=== PATIENT | female | born 1965 | race Caucasian/White ===

== ENCOUNTER → 2017-01-15 | Outpatient (CLI) | payer MEDICAID | LOC: FIMAGING 13:54 | PROVIDERS: ATTEND Registered Nurse | DX: Z12.31 Encounter for screening mammogram for malignant neoplasm of breast (principal); R10.2 Pelvic and perineal pain | CPT/HCPCS: G0202 ==

== ENCOUNTER 2017-05-26 12:45 | Emergency (ER) | payer MEDICAID ==
[2017-05-26 13:04] VITALS: RESP 16
[2017-05-26] MEDS ORDERED: IBUPROFEN 600 MG TAB PO ONE (13:38)
--- NOTE | 2017-05-26 14:05 | EDPHY ---
H & P Time Seen by Provider: 05/26/17 12:55 HPI/ROS: CHIEF COMPLAINT: Cough History by patient HISTORY OF PRESENT ILLNESS: 51-year-old woman with no significant past medical history presents complaining of persistent cough, subjective fever and chills, malaise and aches. The cough has been nonproductive. She also has a sore throat but no real runny nose. She has some her primary care physician at [facility] prescribed an albuterol inhaler but this has not helped her. Symptoms been going on for least 2 weeks but gotten worse the past couple days. She has some nausea but no vomiting or diarrhea. She denies any rash. There is no known ill contacts. She does not smoke. She works as a site manager. REVIEW OF SYSTEMS: As in HPI, and all other systems reviewed and are negative Smoking Status: Never smoked Physical Exam: General Appearance: Alert and no distress. Warm and uncomfortable appearing Head: normocephalic, atraumatic, no sinus tenderness Eyes: Pupils equal and round no injection. Ears: TM clear bilat OP: mucus membranes moist, no tonsillar enlargement, no exudates Neck: no meningismus, no cervical nodes, no submandibular nodes Respiratory: Chest is nontender, lungs are clear to auscultation. Cardiac: regular rate and rhythm. Gastrointestinal: Abdomen is soft and nontender, no masses, bowel sounds normal. Musculoskeletal: Neck is supple and nontender. Extremities have full range of motion and are nontender. Skin: No rashes or lesions. Constitutional: Initial Vital Signs Temperature (C) 36.4 C 05/26/17 12:50 Heart Rate 98 05/26/17 12:50 Respiratory Rate 16 05/26/17 12:50 Blood Pressure 125/91 H 05/26/17 12:50 O2 Sat (%) 95 05/26/17 12:50 O2 Delivery Mode Room Air Allergies/Adverse Reactions: No Known Allergies Allergy (Verified 05/26/17 13:04) Home Medications: Medication Instructions Recorded Albuterol [Proventil Neb] 05/26/17 Hydrochlorothiazide 05/26/17 Oseltamivir Phosphate [Tamiflu 75 75 mg PO BID #10 cap 05/26/17 mg (*)] MDM/Departure - MDM Medications Given: Discontinued Medications Ibuprofen (Motrin) 600 mg PO EDNOW ONE Stop: 05/26/17 13:39 Last Admin: 05/26/17 13:42 Dose: 600 mg ED Course/Re-evaluation: 51-year-old woman presents with ongoing cough subjective fever and well as low- grade temperature in the ED. Influenza B swab was positive. There is no evidence of hypoxia, respiratory compromise or significant systemic toxicity. Patient was started on Tamiflu. I am also recommended she try using a spacer with the albuterol for her cough. We discussed home care and return precautions. Patient is discharged home in stable condition. - Depart Disposition: Home, Routine, Self-Care Clinical Impression: Influenza B Condition: Fair Instructions: Influenza (ED) Additional Instructions: You were seen by Dr. Lachelle Mcintyre. Use a humidifier in the room where you sleep. Try hot drinks with honey for cough and sore throat. Take ibuprofen 400-600mg 4 times daily and Tylenol 500- 1000mg every 6 hours as needed for fever and/or pain. Use your inhaler with a spacer for cough. Take Tamiflu as prescribed. Return for any worsening or new concerns. Prescriptions: Oseltamivir Phosphate [Tamiflu 75 mg (*)] 75 mg PO BID #10 cap Referrals: [facility] [Other] - As per Instructions Print Language: German
[2017-05-26 14:42] VITALS: BP 133/81; PULSE 96; TEMP 98.2; O2SAT 96
== END 2017-05-26 14:42 | disposition home or self-care (01) ==
LOC: CED 12:45
DX: J10.1 Influenza due to other identified influenza virus with other respiratory manifestations (principal)
CPT/HCPCS: 87400-PO

== ENCOUNTER 2017-10-15 15:08 | Emergency (ER) | payer MEDICAID ==
--- NOTE | 2017-10-15 15:21 | CPEKG ---
Heart Rate: 87 RR Interval: 690 P-R Interval: 164 QRSD Interval: 78 QT Interval: 364 QTC Interval: 438 P [place]: 46 QRS [place]: 7 T Wave [place]: -77 EKG Severity - ABNORMAL ECG - EKG Impression: SINUS RHYTHM EKG Impression: NONSPECIFIC T ABNORMALITIES, LATERAL LEADS Electronically Signed By: Bryan Lyons 16-Oct-2017 11:59:33
[2017-10-15] MEDS ORDERED: ASPIRIN 81 MG CHEWABLE TAB PO ONE (15:29)
[2017-10-15 15:37] LABS: PLATELET COUNT 271 10^3/uL (150-400)
[2017-10-15] MEDS ORDERED: NS 1,000 ML IV ONE (15:45)
[2017-10-15] MEDS ORDERED: KETOROLAC 30 MG/1 ML SDV IVP ONE (15:48)
[2017-10-15] MEDS ORDERED: METOCLOPRAMIDE 10 MG/2 ML VIAL IVP ONE (15:48)
[2017-10-15] MEDS ORDERED: MECLIZINE HCL 25 MG TAB PO ONE (16:25)
--- NOTE | 2017-10-15 16:31 | EDPHY ---
H & P Stated Complaint: Pt. states constant CP since Saturday with dizziness,nausea Time Seen by Provider: 10/15/17 15:18 HPI/ROS: This patient presents with multiple somatic complaints. Alva andrea from translation services translated as patient is Botswanan-speaking only. Patient was driven here by her daughter who also provides history. The patient describes a 5 day history of dizziness that she describes as spinning sensation more than lightheadedness without clear exacerbating or alleviating factors. She states the intensity is [id number] and she notes no exacerbating or alleviating factors. She denies any worsening with head movement. She also reports headache described as sharp in nature of 3 days duration in the occipital region-midline 8/10 in intensity and constant. No exacerbating factors. She has not had this headache before. She tried Naporoxen 500 mg last night without relief. No other alleviating factors. Finally, she reports neck pain also 3 days duration that starts in the submandibular region extends to the left trapezius more than right trapezius. She also feels that there is more swelling to her double chin than usual. She also complains of breast pain to lateral breast bilaterally. This was initially interpreted by our nurse as chest pain but the patient specifies that is lateral breast pain that feels burning in nature. ROS: Constitutional: No fevers or chills. Neuro: She reports no numbness tingling or focal weakness. She describes slight photophobia. She also feels that she is slightly diminished vision compared to baseline. No other visual changes. No confusion. HEENT: No recent head trauma. She denies any tooth pain. She does report some jaw pain left more than right. Pulmonary: No dyspnea. No coughing. Cardiovascular: No heart palpitations. No lightheadedness. GI: Some nausea but no vomiting. No abdominal pain. : No dysuria, frequency urgency. Endocrine: No complaints new line integumentary: No complaints Complete review of symptoms is otherwise negative. Source: Patient Exam Limitations: No limitations - Personal History LMP (Females 10-55): Post Menopausal Current Tetanus Diphtheria and Acellular Pertussis (TDAP): Unsure Tetanus Vaccine Date: within 10 years - Medical/Surgical History Hx Asthma: No Hx Chronic Respiratory Disease: No Hx Diabetes: No Hx Cardiac Disease: No Hx Renal Disease: No Hx Cirrhosis: No Hx Alcoholism: No Hx HIV/AIDS: No Hx Splenectomy or Spleen Trauma: No Other PMH: Med hx-HTN,. [id number] - Family History Significant Family History: No pertinent family hx - Social History Smoking Status: Never smoked Alcohol Use: None Drug Use: None Additional Social History: She is accompanied by her daughter with whom she lives. Daughter does not have headache. Daughter drove here will drive her home - Physical Exam Exam: Physical exam: Vital signs are normal General: Patient is in no acute distress. HEENT: Is no external evidence of trauma on exam. Eyes: Pupils are equal and reactive to light. Extraocular motions are intact. Optic fundi: Clear with no papilledema or hemorrhage. Nose atraumatic. Ears: Clear bilaterally with no hemotympanum. Oropharynx: No dental trauma or malocclusion. No intraoral lacerations. Eyes: Pupils are equal and reactive to light. Extraocular motions are intact. Optic fundi: Clear with no papilledema or hemorrhage. Lungs: Clear to auscultation bilaterally Breast exam performed with female nurse in the room-no erythema or warmth to touch. Minimal lateral tenderness without nodularity. Normal appearing nipples without discharge. No other chest wall tenderness. Neck: Supple no meningismus. Cardiac: Regular rate and rhythm no murmur gallop or rub. Abdomen: Soft nontender no organomegaly Neuro: GCS of 15. Cranial nerves II through XII intact. Cerebellar exam is normal as judged by symmetric rapid hand movements bilaterally. No pronator drift. No sensory or motor deficits are appreciated. No eye nystagmus is appreciated. Initial differential diagnosis: Migraine, tension headache, BODY HANGER lesion, intracranial bleed, myocardial ischemic disease, pulmonary embolism, musculoskeletal chest pain, breast pain from skin irritation or brought irritation, doubt mastitis given lack of supportive exam findings. Doubt myocardial ischemic disease given very atypical symptoms. and neck pain. Constitutional: Initial Vital Signs Temperature (C) 36.6 C 10/15/17 15:22 Heart Rate 81 10/15/17 15:22 Respiratory Rate 18 10/15/17 15:22 Blood Pressure 157/84 H 10/15/17 15:22 O2 Sat (%) 95 10/15/17 15:22 O2 Delivery Mode Room Air Allergies/Adverse Reactions: No Known Allergies Allergy (Verified 10/15/17 15:20) Home Medications: Medication Instructions Recorded Hydrochlorothiazide 05/26/17 Meclizine HCl [Meclizine HCl 25 mg 25 mg PO TID PRN #20 tab 10/15/17 (RX,OTC)] Potassium Cl [Klor-Con 20 meq (*)] 20 meq PO DAILY #15 tab 10/15/17 Medical Decision Making - Diagnostics EKG Interpretation: 12 lead EKG: Performed shortly after arrival at 3:19 p.m. Indication chest pain Sinus rhythm at 87 Intervals: Normal throughout ST segments: Normal throughout except for slight ST depression in V5 with no prior for comparison Overall assessment normal sinus rhythm with nonspecific lateral T-wave abnormality ED Course/Re-evaluation: IV, monitor, patient is initially treated with aspirin Meclizine with reduction in her dizziness Reglan and Benadryl with reduction in her headache to minimal symptoms. Toradol IV in addition Tylenol p.o. In addition with further duction her discomfort. Potassium chloride p.o. Studies: CBC normal, metabolic panel normal exception of hypokalemia to 3.0, D- dimer normal, troponin normal Discussion: Patient with headache that I think is likely a tension headache given associated posterior neck tenderness. No evidence of meningismus on exam. Doubt BODY HANGER process. No evidence of central vertigo based on exam. Also appreciate no nystagmus or worsening of her dizziness with head movement that would be consistent with benign positional vertigo. While she has breast pain, find no abnormalities on her exam. All her symptoms improved with treatment. After workup, and not think she has acute coronary syndrome. Given lack of risk factors are normal D-dimer, very low risk of pulmonary embolism. Did not pursue chest imaging given that her symptoms are really breast pain rather than true chest pain. I suspect that her low potassium is attributable to her thiazide diuretic. I gave her a dose of potassium here with plan for to continue potassium chloride as an outpatient and follow up with primary care physician within the next week for recheck and recheck potassium level. Patient understands the need to return should she develop any worsening of symptoms despite plan of meclizine for dizziness if needed, Tylenol ibuprofen for any recurrent headaches. - Data Points Laboratory Results: Laboratory Results 10/15/17 15:26 10/15/17 15:26 10/15/17 10/15/17 10/15/17 15:26 15:26 15:26 WBC 9.09 10^3/uL 10^3/uL (3.80-9.50) RBC 4.64 10^6/uL 10^6/uL (4.18-5.33) Hgb 14.7 g/dL g/dL (12.6-16.3) Hct 41.1 % % (38.0-47.0) MCV 88.6 fL fL (81.5-99.8) MCH 31.7 pg pg (27.9-34.1) MCHC 35.8 g/dL g/dL (32.4-36.7) RDW 12.2 % % (11.5-15.2) Plt Count 271 10^3/uL 10^3/uL (150-400) MPV 9.4 fL fL (8.7-11.7) Neut % (Auto) 55.5 % % (39.3-74.2) Lymph % (Auto) 36.5 % % (15.0-45.0) [place]usk % (Auto) 6.7 % % (4.5-13.0) Eos % (Auto) 0.7 % % (0.6-7.6) Baso % (Auto) 0.3 % % (0.3-1.7) Nucleat RBC Rel Count 0.0 % % (0.0-0.2) Absolute Neuts (auto) 5.04 10^3/uL 10^3/uL (1.70-6.50) Absolute Lymphs (auto) 3.32 10^3/uL H 10^3/uL (1.00-3.00) Absolute Monos (auto) 0.61 10^3/uL 10^3/uL (0.30-0.80) Absolute Eos (auto) 0.06 10^3/uL 10^3/uL (0.03-0.40) Absolute Basos (auto) 0.03 10^3/uL 10^3/uL (0.02-0.10) Absolute Nucleated RBC 0.00 10^3/uL 10^3/uL (0-0.01) Immature Gran % 0.3 % % (0.0-1.1) Immature Gran # 0.03 10^3/uL 10^3/uL (0.00-0.10) D-Dimer 0.27 ug/mLFEU ug/mLFEU (0.00-0.50) Sodium 144 mEq/L mEq/L (135-145) Potassium 3.0 mEq/L L mEq/L (3.3-5.0) Chloride 103 mEq/L mEq/L (97-110) Carbon Dioxide 29 mEq/l mEq/l (22-31) Anion Gap 12 mEq/L mEq/L (8-16) BUN 7 mg/dL mg/dL (7-23) Creatinine 0.8 mg/dL mg/dL (0.6-1.0) Estimated GFR > 60 Glucose 111 mg/dL H mg/dL (70-100) Calcium 9.3 mg/dL mg/dL (8.5-10.4) Troponin I < 0.012 ng/mL ng/mL (0.000-0.034) Medications Given: Discontinued Medications Acetaminophen (Tylenol) 1,000 mg PO EDNOW ONE Stop: 10/15/17 17:09 Last Admin: 10/15/17 17:14 Dose: 1,000 mg Aspirin (Aspirin) 324 mg PO EDNOW ONE Stop: 10/15/17 15:30 Last Admin: 10/15/17 15:38 Dose: 324 mg Diphenhydramine HCl (Benadryl Injection) 25 mg IVP EDNOW ONE Stop: 10/15/17 15:49 Last Admin: 10/15/17 16:02 Dose: 25 mg Sodium Chloride (Ns) 1,000 mls @ 0 mls/hr IV ONCE ONE PRN Reason: Wide Open Stop: 10/15/17 15:46 Last Admin: 10/15/17 15:45 Dose: 1,000 mls Ketorolac Tromethamine (Toradol) 30 mg IVP EDNOW ONE Stop: 10/15/17 15:49 Last Admin: 10/15/17 16:06 Dose: 30 mg Meclizine HCl (Meclizine Hcl) 25 mg PO EDNOW ONE Stop: 10/15/17 16:26 Last Admin: 10/15/17 16:37 Dose: 25 mg Metoclopramide HCl (Reglan Injection) 10 mg IVP EDNOW ONE Stop: 10/15/17 15:49 Last Admin: 10/15/17 16:13 Dose: 10 mg Potassium Chloride (Klor Packets) 40 meq PO EDNOW ONE Stop: 10/15/17 17:06 Last Admin: 10/15/17 17:15 Dose: 40 meq Departure - Departure Disposition: Home, Routine, Self-Care Clinical Impression: Dizziness, Breast pain, Hypokalemia Acute headache Qualifiers: Headache type: tension-type Intractability: not intractable Qualified Code(s): G44.209 - Tension-type headache, unspecified, not intractable Condition: Good Instructions: Potassium Chloride (By mouth), Meclizine (By mouth), Hypokalemia (ED), Acute Headache (ED), Dizziness (ED) Additional Instructions: Diagnoses: 1. Acute headache 2. Dizziness 3. Breast pain 4. Hypokalemia Plan: Tylenol and ibuprofen for breast pain and headache Meclizine if needed for dizziness. Potassium daily as prescribed for low potassium related to your blood pressure medicine. Follow up with [facility] in 1 week for recheck and to recheck your potassium level. Return emergency department for any significant worsening despite the treatment plan Diagnostico: 1. Dolor de cornelius dolly 2. Mareo 3. Dolor en los pechos 4. Hipokalemiea Plan: Tylenol y Ibuprofen para el dolor de los pechos y de la cornelius - Meclizine si lo necesita para los mareos - Potasio a diario a lisbet le le almonte recetado para el bajo nivel de potasio relacionado a reyna medicina para la presion de la marie. - Zachary kd alcon de seguimiento con la [facility] en 1 semana para re- evaluar reyna nivel de potasio - Regrese a la deanne de emergencia si empeora reyna condicion a pesar del tratamiento. Referrals: [facility] [Other] - As per Instructions Prescriptions: Meclizine HCl [Meclizine HCl 25 mg (RX,OTC)] 25 mg PO TID PRN #20 tab PRN Reason: Dizziness Potassium Cl [Klor-Con 20 meq (*)] 20 meq PO DAILY #15 tab Print Language: Bots[place]an
[2017-10-15] MEDS ORDERED: POTASSIUM CL 20 MEQ PKT PO ONE (17:05)
[2017-10-15] MEDS ORDERED: ACETAMINOPHEN 500 MG TAB PO ONE (17:08)
[2017-10-15 18:23] VITALS: BP 127/85
== END 2017-10-15 18:20 | disposition home or self-care (01) ==
LOC: CED 15:08
DX: G44.209 Tension-type headache, unspecified, not intractable (principal); R42 Dizziness and giddiness; N64.4 Mastodynia; E87.6 Hypokalemia; I10 Essential (primary) hypertension
CPT/HCPCS: 80048-PO; 84484-PO; 85025-PO; 85378-PO; 96374; J1200; J1885; J2765

== ENCOUNTER 2018-02-02 12:40 | Emergency (ER) | payer MEDICAID ==
--- NOTE | 2018-02-02 13:34 | EDPHY ---
H & P Time Seen by Provider: 02/02/18 12:50 HPI/ROS: CHIEF COMPLAINT: Cough HISTORY OF PRESENT ILLNESS: History obtained with use of translation services- [employer]. Patient states she has had a cough for about 3 weeks. It started initially with a sore throat. After a few days she developed dry cough. She did feel feverish at that time but did not take her temperature. She denies any rhinorrhea or other upper respiratory symptoms. She states the cough is worse now although no sputum production. She has tried nothing for the cough. She does say that she gets some shortness of breath with exertion but is otherwise not short of breath. She denies any chest pain. She does not have a sore throat currently. She does feel a bit hoarse. She has had no nausea, vomiting, diarrhea. No dysuria. No rashes. No recent travel. No one else at home is sick. REVIEW OF SYSTEMS: Negative except per HPI. General Appearance: Alert, no distress. Eyes: Pupils equal and round no icterus HEENT: Normal oropharynx. Mild cervical lymphadenopathy. Nontender. Respiratory: No respiratory distress. Deep cough. Lungs clear to auscultation bilaterally. No wheezes with forced expiration. Abdomen: Soft, nontender nondistended. Neurological: Awake, alert, no focal deficits. Skin: Warm and dry, no rashes. Musculoskeletal: Neck is supple nontender. Extremities are symmetrical, full range of motion, no edema. Psychiatric: Patient is oriented X 3, there is no agitation. Medical/surgical history: Hypertension. History of section. Social history: No tobacco, EtOH, drugs. Smoking Status: Never smoked Constitutional: Initial Vital Signs Temperature (C) 37.1 C 02/02/18 12:48 Heart Rate 66 02/02/18 12:48 Respiratory Rate 18 02/02/18 12:48 Blood Pressure 150/76 H 02/02/18 12:48 O2 Sat (%) 95 02/02/18 12:48 O2 Delivery Mode Room Air Allergies/Adverse Reactions: No Known Allergies Allergy (Verified 02/02/18 12:47) Home Medications: Medication Instructions Recorded Hydrochlorothiazide 05/26/17 Ipratropium/Albuterol [Combivent 1 inh IH QID PRN #1 mdi 02/02/18 Respimat Inhal [place](*)] Medical Decision Making - Diagnostics Imaging Results: Imaging Impressions Chest X-Ray 02/02/18 13:09 Impression: Mild perihilar bronchitis, without a focal infiltrate. Imaging: I viewed and interpreted images myself ED Course/Re-evaluation: Chest x-ray with likely viral bronchitis. Given DuoNeb for symptomatic relief. Some improvement. Will prescribe for outpatient use. Differential Diagnosis: Differential diagnosis includes but is not limited to pneumonia, bronchitis, other upper respiratory infection, CHF, acute coronary syndrome, pulmonary embolism. After evaluation patient nontoxic appearing with no history of chest pain, syncope, edema, other concerns for serious cardiopulmonary cause. Suspect viral bronchitis and will treat symptomatically. Patient does have follow up with [facility] on Saturday for recheck. I have discussed return precautions in detail. Stable for discharge. Departure - Departure Clinical Impression: Bronchitis Condition: Good Instructions: Acute Bronchitis (ED) Additional Instructions: Try the inhaled medications as prescribed for cough, it can make you feel shaky after you take the medication and this is normal. It will not last long. Also you should use Robitussin DM. Ibuprofen and Tylenol may help as well. Stay well hydrated. Follow up with your primary care provider at [facility] on Saturday as scheduled. Return to the emergency department if he developed chest pain, high fevers, shortness of breath or other concerning new symptoms. Referrals: [facility] [Other] - As per Instructions Prescriptions: Ipratropium/Albuterol [Combivent Respimat Inhal [place](*)] 1 inh IH QID PRN #1 mdi PRN Reason: Cough, Moderate
[2018-02-02] MEDS ORDERED: IPRATROPIUM/ALBUTEROL 3 ML DEYVIAL IH ONE (13:35)
[2018-02-02] MEDS ORDERED: IPRATROPIUM/ALBUTEROL 3 ML DEYVIAL ONE (13:35)
[2018-02-02 13:54] VITALS: BP 113/71
== END 2018-02-02 13:53 | disposition home or self-care (01) ==
LOC: CED 12:40
DX: J20.9 Acute bronchitis, unspecified (principal); I10 Essential (primary) hypertension
CPT/HCPCS: 71046-PO

== ENCOUNTER 2018-06-25 15:25 | Emergency (ER) | payer MEDICAID ==
--- NOTE | 2018-06-25 15:38 | EDPHY ---
H & P Stated Complaint: Cough Time Seen by Provider: 06/25/18 15:36 HPI/ROS: Chief complaint: Cough for 2 weeks, getting worse HPI: This is a 52-year-old female who did not get seasonal influenza. She developed a illness that was strictly cough approximately 2 weeks ago. However the last 5 days the cough has been getting worse. While it does rattle, she is not spinning anything out. She has had no associated fever. She does note that the cough is getting worse and that is keeping her awake but it has not gotten to the point where she has strained or popped any ribs. For last 2 nights she has tried NyQuil but it really has not been helping. She was exposed to her son or grandson who was ill approximately 3 weeks ago. He describes as an influenza like illness associated with headache rhinorrhea and cough without body aches. However he recovered completely. Denies sinus pain or earache or sore throat ROS: Constitutional - no fevers or chills. Eyes - no discharge, or injection ENT - no earache, change in hearing, difficulty swallowing, sore throat. Respiratory - though there is a cough which rattles she is not bringing up phlegm. There has been no wheezing. Musculoskeletal - no joint or muscle pain. Integument - no rashes. Neurological - no headache, numbness, tingling, or paresthesias. No focal motor weakness. Immunological - no swelling or lymphadenopathy A 10 system review of systems was performed and is negative except for the noted findings in the HPI. Source: Patient - Personal History LMP (Females 10-55): Now Tetanus Vaccine Date: within 10 years - Medical/Surgical History Hx Asthma: No Hx Chronic Respiratory Disease: No Hx Diabetes: No Hx Cardiac Disease: No Hx Renal Disease: No Hx Cirrhosis: No Hx Alcoholism: No Hx HIV/AIDS: No Hx Splenectomy or Spleen Trauma: No Other PMH: Med hx-HTN,. [id number] - Social History Smoking Status: Never smoked Alcohol Use: None Drug Use: None - Physical Exam Exam: Gen: Well developed, well nourished. Obese. Nontoxic. afebrile VSS HEENT: Normocephalic. Ears: TMs are clear. Hearing normal. Eyes: PERRL. No conjunctival injection or pallor. no jaundice. Nose: No nasal discharge. Sinuses are nontender. Throat: Membranes are moist. Oropharynx is without erythema or exudate. Normal phonation. Neck: Trachea is in the ML. No laryngeal tenderness. No adenopathy Lungs: Good air entry into both lungs. There is no respiratory distress. There are rales and decreased breath sounds at the right base but no wheezing is heard. Skin: Good color, without pallor. There is no diaphoresis. Skin is warm and dry , without diaphoresis. Intact without rashes Constitutional: Initial Vital Signs Temperature (C) 36.9 C 06/25/18 15:36 Heart Rate 76 06/25/18 15:36 Respiratory Rate 18 06/25/18 15:36 Blood Pressure 184/96 H 06/25/18 15:36 O2 Sat (%) 95 06/25/18 15:36 O2 Delivery Mode Room Air Allergies/Adverse Reactions: No Known Allergies Allergy (Verified 06/25/18 15:35) Home Medications: Medication Instructions Recorded Hydrochlorothiazide 05/26/17 Azithromycin [Zithromax] 250 mg PO DAILY #6 tab 06/25/18 Benzonatate 200 mg PO TID PRN #28 capsule 06/25/18 Medical Decision Making - Diagnostics Imaging Results: Imaging Impressions Chest X-Ray 06/25/18 15:50 Impression: Right lower lobe pneumonia. Continued radiographic surveillance is recommended until resolution. Doug Britton was notified of these findings by telephone at 4:31 PM on 06/25/2018 Imaging: Discussed imaging studies w/ mechanic recovery Radiologist ED Course/Re-evaluation: Hear her nonfasting fingerstick glucose was 129. Thus, no reason to suspect diabetes. Chest x-ray: Differential Diagnosis: Diagnostic considerations include, but are not limited to, the following: URI, sinusitis, pharyngitis, otitis media, pneumonia, allergy, influenza, strep throat. - Data Points Laboratory Results: 06/25/18 15:54 POC Glucose 122 mg/dL H mg/dL (70-100) Medications Given: Discontinued Medications Benzonatate (Tessalon Pearles) 200 mg PO EDNOW ONE Stop: 06/25/18 16:11 Last Admin: 06/25/18 16:21 Dose: 200 mg Point of Care Test Results: Chemistry 06/25/18 15:54 POC Glucose 122 mg/dL H mg/dL (70-100) Departure - Departure Disposition: Home, Routine, Self-Care Clinical Impression: Pneumonia Qualifiers: Pneumonia type: due to unspecified organism Laterality: right Lung location: lower lobe of lung Qualified Code(s): J18.1 - Lobar pneumonia, unspecified organism Condition: Good Instructions: Bacterial Pneumonia (ED) Additional Instructions: For the COUGH: Delsym DM 4 tsp twice a day or Benzonatate (Rx) for the cough One or the other will work, but do not take them both together. Also, do not take them with other OTC cold medications, including do not take NyQuil Your contagious, so stay home. No work, no going to a friend's houses, no going to yarsani. Referrals: [facility] [Other] - 2-3 days without fail Stand Alone Forms: Work Excuse Prescriptions: Azithromycin [Zithromax] 250 mg PO DAILY #6 tab Benzonatate 200 mg PO TID PRN #28 capsule PRN Reason: Cough Print Language: Polish
[2018-06-25] MEDS ORDERED: BENZONATATE 100 MG CAP PO ONE (16:10)
[2018-06-25 16:25] VITALS: BP 159/104
== END 2018-06-25 16:36 | disposition home or self-care (01) ==
LOC: CED 15:25
DX: J18.1 Lobar pneumonia, unspecified organism (principal); I10 Essential (primary) hypertension
CPT/HCPCS: 71046-PO; 99284-ER